=== PATIENT | male | born 1980 | race Caucasian/White ===

== ENCOUNTER 2016-10-30 09:32 | Emergency (ER) | payer SELFPAY ==
[~2016-10-30] VITALS: Ht 177.8 cm; Wt 145.5 kg
[~2016-10-30 09:32] MED LIST: ADVIL200 MG PO; BACTRIM DS 8001 TAB PO; CEPHALEXIN500 M1 PO; CLINDAMYCIN HC150 MG PO; CLINDAMYCIN HC300 MG PO; ERYTHROMYCIN B500 MG PO; GLUCOPHAGE500 MG/TAB PO; LORTAB 5/500 501 TAB PO; NAPROSYN500 MG PO; NO HOME MEDICATIONS; NORCO 325 MG-51 TAB PO; SEPTRA DS 8001 TAB PO
[2016-10-30 09:34] VITALS: BP 151/72; PULSE 102; TEMP 98.6
[2016-10-30] MEDS ORDERED: CEPHALEXIN500 M1 PO (09:57)
== END 2016-10-30 10:50 | disposition home or self-care (01) ==
LOC: COL.ER 09:32
DX: L03.115 Cellulitis of right lower limb (principal)

== ENCOUNTER 2017-07-14 18:28 | Emergency (ER) | payer SELFPAY ==
[~2017-07-14] VITALS: Ht 177.8 cm; Wt 150.0 kg
[2017-07-14 18:32] VITALS: BP 147/96; TEMP 98.5
[2017-07-14 20:12] LABS: BASO # 0.1 (0.0-0.2); BASO % 0.5 % (0.0-2.0); EOS # 0.1 (0.0-0.7); EOS % 0.5 % (0-4.0); GRAN # 7.4 (1.4-6.5); GRAN % 74.6 % (42.2-75.2); HEMATOCRIT 44.5 % (42.0-52.0); HEMOGLOBIN 15.3 g/dl (13.5-18.0); LYMPH # 1.1 (1.2-3.4); LYMPH % 11.4 % (20.0-51.0); MEAN CELL VOLUME 86 fl (80.0-100.0); MEAN CORPUSCULAR HEMOGLOBIN 30 pg (27.0-31.0); MEAN CORPUSCULAR HGB CONC 34 g/dl (33.0-37.0); MEAN PLATELET VOLUME 11.2 fl (7.4-10.4); MONO # 1.1 (0.1-0.6); MONO % 10.9 % (1.7-9.3); PLATELET COUNT 127 K/mm3 (130-400); RED BLOOD COUNT 5.19 M/mm3 (4.20-5.60); REDCELL DISTRIBUTION WIDTH-CV 12.4 % (11.5-14.5); WHITE BLOOD COUNT 9.9 K/mm3 (4.8-10.8)
[2017-07-14 21:09] LABS: ADJUSTED CALCIUM 9.1 mg/dL (8.4-10.2); ALBUMIN 3.5 gm/dL (3.5-5.0); BILIRUBIN,TOTAL 1.1 mg/dL (0.0-1.0); CALCIUM 8.7 mg/dL (8.4-10.2); CREATININE, serum 0.74 mg/dL (0.66-1.25); POTASSIUM 3.9 mmol/L (3.4-5.0); TOTAL PROTEIN 7.3 gm/dL (6.4-8.2)
[2017-07-14] MEDS ORDERED: K-DUR 10 MEQ T10 MEQ PO (21:32)
[2017-07-14] MEDS ORDERED: LASIX 20MG TABL20 MG PO (21:32)
[2017-07-14] MEDS ORDERED: CEPHALEXIN500 M1 PO (21:32)
[2017-07-14 21:47] VITALS: PULSE 96
== END 2017-07-14 21:53 | disposition home or self-care (01) ==
LOC: COL.ER 18:28
PROVIDERS: Physician Assistant
DX: L03.116 Cellulitis of left lower limb (principal)